=== PATIENT | male | born 1975 | race Hispanic/Latino ===

== ENCOUNTER 2016-11-04 22:25 | Emergency (ER) | payer SELFPAY ==
[2016-11-04 22:48] VITALS: BP 111/64
[2016-11-04] MEDS ORDERED: BOOSTRIX IM ONE (23:04)
[2016-11-04] MEDS ORDERED: MORPHINE IM ONE (23:04)
[2016-11-04] MEDS ORDERED: ZOFRAN ODT PO ONE (23:05)
[2016-11-04 23:37] LABS: Anion Gap 13 mmol/L; Blood Urea Nitrogen 18 mg/dL (9-20); Calcium 8.9 mg/dL (8.4-10.2); Carbon Dioxide 30 mmol/L (22-30); Chloride 102.9 mmol/L (98-107); Glucose 115 mg/dL (75-100); Potassium 4.2 mmol/L (3.6-5.0); Sodium 142 mmol/L (137-145)
[2016-11-04 23:43] LABS: Basophils % (Auto) 0.5 % (0.0-1.8); Hematocrit 40.4 % (35.5-45.6); Hemoglobin 13.5 gm/dl (11.8-15.2); Mean Corpuscular HGB Conc 34 % (32-34); Mean Corpuscular Hemoglobin 29 pg (28-32); Mean Corpuscular Volume 87 fl (84-94); Platelet Count 274 K/mm3 (140-440); Red Blood Count 4.67 M/mm3 (3.65-5.03); Red Cell Distribution Width 14.1 % (13.2-15.2); White Blood Count 9.7 K/mm3 (4.5-11.0)
[2016-11-04 23:55] LABS: Urine Drugs of Abuse Note Disclamer
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
[2016-11-05] MEDS ORDERED: NORCO 5/325 PO ONE (01:56)
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
== END 2016-11-05 03:12 | disposition home or self-care (01) ==
LOC: ED 22:25
DX: S06.0X0A Concussion without loss of consciousness, initial encounter (principal); S50.12XA Contusion of left forearm, initial encounter; Y04.2XXA Assault by strike against or bumped into by another person, initial encounter; Y93.89 Activity, other specified; Y99.8 Other external cause status; Y92.009 Unspecified place in unspecified non-institutional (private) residence as the place of occurrence of the external cause
CPT/HCPCS: 36415; 70450; 72125; 73060; 73090; 80048; 80307; 85025; 90471; 90715; 96372; 99285; J2270; Q0162